=== PATIENT | female | born 1975 | race Two or more races ===

== ENCOUNTER 2017-07-23 17:56 | Inpatient (IN) | payer OTHER ==
[2017-07-23] MEDS ORDERED: NACL 0.9% 3 ML SYG IV ×2 (19:00→21:00)
[2017-07-23 19:36] LABS: ADD MAN DIFF? NO
[2017-07-23 19:38] LABS: WHITE BLOOD COUNT 9.4 10^3/ul (4.8-10.8)
[2017-07-23 19:38] LABS: BASOPHILS % 0.4 % (0.0-2.0); EOSINOPHILS # 0.1 10^3/ul (0.0-0.5); EOSINOPHILS % 1.4 % (0.0-7.0); HEMOGLOBIN 13.1 g/dl (12.0-16.0); LYMPHOCYTES % 32.3 % (15.0-51.0); MEAN CORPUSCULAR HEMOGLOBIN 30.6 pg (29.0-33.0); MEAN CORPUSCULAR HGB CONC 33.6 g/dl (32.0-37.0); MEAN CORPUSCULAR VOLUME 91.1 fl (82.0-101.0); MONOCYTE # 0.5 10^3/ul (0.3-0.9); MONOCYTES % 4.9 % (0.0-11.0); NEUTROPHIL # 5.7 10^3/ul (1.6-7.5); NEUTROPHILS % 60.7 % (39.0-77.0); PLATELET COUNT 267 10^3/UL (140-415); RED BLOOD COUNT 4.28 10^6/ul (4.20-5.40); RED CELL DISTRIBUTION WIDTH 14.1 % (11.5-14.5)
[2017-07-23] MEDS: SOD CHLORIDE 0.45% 1,000 ML IV (19:40)
[2017-07-23] MEDS: HYDROmorphONE 0.5 MG/0.5 ML SYG IV (19:41)
[2017-07-23 19:57] LABS: ALANINE AMINOTRANSFERASE 31 IU/L (13-69); ALBUMIN 3.7 g/dl (3.3-4.9); ALBUMIN/GLOBULIN RATIO 1.32; ALKALINE PHOSPHATASE 45 IU/L (42-121); ANION GAP 13 (8-16); ASPARTATE AMINO TRANSFERASE 18 IU/L (15-46); BILIRUBIN,INDIRECT 0.5 mg/dl (0-1.1); BILIRUBIN,TOTAL 0.5 mg/dl (0.2-1.3); BLOOD UREA NITROGEN 11 mg/dl (7-20); CALCIUM 8.9 mg/dl (8.4-10.2); CARBON DIOXIDE 27 mmol/L (21-31); CHLORIDE 107 mmol/L (97-110); CREATININE 0.82 mg/dl (0.44-1.00); GLUCOSE 87 mg/dl (70-220); INR 1.01; POTASSIUM 4.1 mmol/L (3.5-5.1); PROTIME 13.4 Sec (11.9-14.9); SODIUM 143 mmol/L (135-144); TOTAL PROTEIN 6.5 g/dl (6.1-8.1)
[2017-07-23 19:58] LABS: PARTIAL THROMBOPLASTIN TIME 29.7 Sec (25.0-35.0)
[2017-07-23] MEDS: ONDANSETRON 4 MG INJ IV (20:33)
[2017-07-23] MEDS ORDERED: morphine 2 MG INJ IV (21:00)
[2017-07-23] MEDS ORDERED: ACETAMINOPHEN 325 MG TAB PO (21:00)
[2017-07-24] MEDS: PIPER-TAZO 3.375 GM IV (PMX) 100 ML IVPB ×4 (03:09→15:00)
[2017-07-24] MEDS: SOD CHLORIDE 0.45% 1,000 ML IV (06:03)
[2017-07-24] MEDS ORDERED: CEFAZOLIN 1 GM INJ (07:00)
[2017-07-24] MEDS ORDERED: DEXAMETHASONE 4 MG/ML 1 ML INJ (07:00)
[2017-07-24] MEDS ORDERED: ROCURONIUM 50 MG INJ ×2 (07:00→13:09)
[2017-07-24] MEDS ORDERED: ONDANSETRON 4 MG INJ (07:00)
[2017-07-24] MEDS ORDERED: METOCLOPRAMIDE 10 MG INJ (07:00)
[2017-07-24 08:27] LABS: ADD MAN DIFF? NO
[2017-07-24] MEDS: HYDROmorphONE 0.5 MG/0.5 ML SYG IV (08:29)
[2017-07-24 08:32] LABS: WHITE BLOOD COUNT 7.3 10^3/ul (4.8-10.8)
[2017-07-24 08:32] LABS: BASOPHIL # 0.1 10^3/ul (0.0-0.1); BASOPHILS % 0.8 % (0.0-2.0); EOSINOPHILS # 0.2 10^3/ul (0.0-0.5); EOSINOPHILS % 2.6 % (0.0-7.0); HEMATOCRIT 36.1 % (37.0-47.0); HEMOGLOBIN 11.9 g/dl (12.0-16.0); LYMPHOCYTES # 2.5 10^3/ul (0.8-2.9); LYMPHOCYTES % 33.7 % (15.0-51.0); MEAN CORPUSCULAR HEMOGLOBIN 30.2 pg (29.0-33.0); MEAN CORPUSCULAR VOLUME 91.6 fl (82.0-101.0); MEAN PLATELET VOLUME 10.4 fl (7.4-10.4); MONOCYTE # 0.4 10^3/ul (0.3-0.9); NEUTROPHIL # 4.2 10^3/ul (1.6-7.5); NEUTROPHILS % 56.6 % (39.0-77.0); PLATELET COUNT 239 10^3/UL (140-415); RED BLOOD COUNT 3.94 10^6/ul (4.20-5.40); RED CELL DISTRIBUTION WIDTH 14.3 % (11.5-14.5)
[2017-07-24 08:45] LABS: HEMOGLOBIN A1C 5.5 % (0-5.9)
[2017-07-24 08:49] LABS: CHOL/HDL RATIO 2.9 RATIO; HDL CHOLESTEROL 48 mg/dl (34-88); LDL CHOLESTEROL,CALCULATED 81 mg/dl; TRIGLYCERIDES 63 mg/dl (0-149)
[2017-07-24 08:49] LABS: CHOLESTEROL 142 mg/dl (100-200)
[2017-07-24 08:53] LABS: ALANINE AMINOTRANSFERASE 26 IU/L (13-69); ALBUMIN 3.1 g/dl (3.3-4.9); ALBUMIN/GLOBULIN RATIO 1.29; ALKALINE PHOSPHATASE 43 IU/L (42-121); ASPARTATE AMINO TRANSFERASE 16 IU/L (15-46); BILIRUBIN,INDIRECT 0.5 mg/dl (0-1.1); BILIRUBIN,TOTAL 0.5 mg/dl (0.2-1.3); BLOOD UREA NITROGEN 11 mg/dl (7-20); CALCIUM 8.1 mg/dl (8.4-10.2); CARBON DIOXIDE 26 mmol/L (21-31); CHLORIDE 107 mmol/L (97-110); CREATININE 0.78 mg/dl (0.44-1.00); GLUCOSE 80 mg/dl (70-220); SODIUM 141 mmol/L (135-144); TOTAL PROTEIN 5.5 g/dl (6.1-8.1)
[2017-07-24 08:56] LABS: ANION GAP 12 (8-16); POTASSIUM 3.7 mmol/L (3.5-5.1)
[2017-07-24 09:19] LABS: THYROID STIMULATING HORMONE 0.828 MIU/L (0.465-4.680)
[2017-07-24] MEDS ORDERED: FENTAnyl 50 MCG/ML VIAL (13:06)
[2017-07-24] MEDS ORDERED: MIDAZOLAM 1 MG/ML 2 ML INJ (13:09)
[2017-07-24] MEDS ORDERED: PROPOFOL 20 ML (13:09)
[2017-07-24] MEDS ORDERED: SUCCINYLCHOLINE CHLORIDE 100 MG/5 ML SYG IV (13:09)
[2017-07-24] MEDS ORDERED: LIDOCAINE 2% (SDV) 5 ML INJ (13:09)
[2017-07-24] MEDS ORDERED: HYDROmorphONE 2 MG/ML SYG (13:41)
[2017-07-24] MEDS ORDERED: SUGAMMADEX SODIUM 200 MG/2 ML VIAL IV ×2 (14:12→16:09)
[2017-07-24] MEDS: BUPIVACAINE 0.5%/EPI (SDV) 30 ML INJ INJ (16:01)
[2017-07-24] MEDS ORDERED: DIPHENHYDRAMINE 50 MG INJ IV (16:30)
[2017-07-24] MEDS ORDERED: NA PHOSPHATE/BIPHOS 133 ML ENEMA PR (16:30)
[2017-07-24] MEDS ORDERED: MEPERIDINE 25 MG INJ IV (16:30)
[2017-07-24] MEDS ORDERED: METOCLOPRAMIDE 10 MG INJ IV (16:30)
[2017-07-24] MEDS ORDERED: BISACODYL 10 MG SUPP PR (16:30)
[2017-07-24] MEDS ORDERED: FENTAnyl 50 MCG/ML VIAL IV ×2 (16:30)
[2017-07-24] MEDS ORDERED: KETOROLAC 30 MG INJ IV (16:30)
[2017-07-24] MEDS ORDERED: HYDROmorphONE 0.5 MG/0.5 ML SYG IV (16:30)
[2017-07-24] MEDS ORDERED: HYDROCODONE/APAP (5/325) TAB PO (16:30)
[2017-07-24] MEDS ORDERED: HYDROmorphONE (0.2 MG/ML) 10ML SYG IV ×2 (16:30)
[2017-07-24] MEDS ORDERED: ONDANSETRON 4 MG INJ IV (16:30)
[2017-07-24] MEDS: HYDROmorphONE (0.2 MG/ML) 10ML SYG IV (17:34)
[2017-07-24] MEDS: HYDROCODONE/APAP (5/325) TAB PO ×2 (20:52→23:57)
[2017-07-24] MEDS: DOCUSATE SODIUM 100 MG CAP PO (23:57)
[2017-07-25] MEDS: HYDROCODONE/APAP (5/325) TAB PO (05:33)
[2017-07-25] MEDS: HYDROmorphONE 0.5 MG/0.5 ML SYG IV (07:43)
[2017-07-25] MEDS: FAMOTIDINE 20 MG INJ IV (08:55)
[2017-07-25] MEDS: ENOXAPARIN 40 MG/0.4 ML SYG SC (08:56)
== END 2017-07-25 12:27 | disposition home or self-care (01) | DRG 419 ==
LOC: PP2 17:56
PROC: 0FT44ZZ Resection of Gallbladder, Percutaneous Endoscopic Approach (ICD-10-PCS; principal; 2017-07-24 13:00)
DX: K80.00 Calculus of gallbladder with acute cholecystitis without obstruction (principal)
CPT/HCPCS: 80053; 80061; 83036; 84443; 85025; 85610; 85730; 87081; 88304